=== PATIENT | male | born 1990 | race Hispanic/Latino ===

== ENCOUNTER 2017-03-13 02:11 | Emergency (ER) | payer MEDICAID ==
[2017-03-13 02:30] VITALS: BP 144/62; PULSE 80; RESP 16; TEMP 98.2; O2SAT 100
--- NOTE | 2017-03-13 02:38 | ED PDOC ---
HPI: General Adult Time Seen by Provider: 03/13/17 02:25 Chief Complaint (Nursing): Medical Clearance Chief Complaint (Provider): none History Per: Patient, EMS Additional History Per: Patient, EMS Additional Complaint(s): 26 y/o male brought in by EMS and police for eval. Patient was placed under arrest for being disruptive in homeless residential, and was then released and brought here. Patient calm upon arrival, not speaking but nods "yes" and "no" to questions asked. Denies acute medical or psychiatric complaints. History of bipolar, schizoaffective as per chart. Admits to being compliant with psych meds. Past Medical History Reviewed: Historical Data, Nursing Documentation, Vital Signs Vital Signs: Last Vital Signs Temp 98.2 F 03/13/17 02:28 Pulse 80 03/13/17 02:28 Resp 16 03/13/17 02:28 BP 144/62 03/13/17 02:28 Pulse Ox 100 03/13/17 05:21 - Medical History PMH: Bipolar Disorder Denies: Chronic Kidney Disease - Surgical History Surgical History: No Surg Hx - Family History Family History: States: No Known Family Hx - Living Arrangements Living Arrangements: Alone - Allergies Allergies/Adverse Reactions: Allergies Allergy/AdvReac Type Severity Reaction Status Date / Time Penicillins Allergy RASH Verified 02/26/16 01:28 Review of Systems ROS Statement: Except As Marked, All Systems Reviewed And Found Negative Physical Exam - Reviewed Nursing Documentation Reviewed: Yes Vital Signs Reviewed: Yes - Physical Exam Appears: Positive for: Well, Non-toxic, No Acute Distress Head Exam: Positive for: ATRAUMATIC, NORMAL INSPECTION, NORMOCEPHALIC Skin: Positive for: Normal Color ENT: Positive for: Normal ENT Inspection Cardiovascular/Chest: Positive for: Regular Rate, Rhythm Respiratory: Positive for: Normal Breath Sounds Extremity: Positive for: Normal ROM Neurologic/Psych: Positive for: Alert, Oriented - Laboratory Results Result Diagrams: 03/13/17 04:35 03/13/17 04:35 - ECG O2 Sat by Pulse Oximetry: 100 - Progress ED Course And Treament: labs, urine, crisis eval Patient evaluated by construction worker; does not meet criteria for admission at this time. Follow up outpatient therapy. Return to ED for worsening/concerning symptoms. Disposition - Clinical Impression Clinical Impression: Schizoaffective disorder - Patient ED Disposition Is Patient to be Admitted: No Counseled Patient/Family Regarding: Studies Performed, Diagnosis, Need For Followup - Disposition Disposition: Routine/Home Disposition Time: 05:21 Condition: STABLE Additional Instructions: Follow up with outpatient therapy as scheduled, today. Continue current medications. Return to ED for worsening/concerning symptoms. Instructions: Schizoaffective Disorder (ED)
[2017-03-13 04:42] LABS: BASO # 0.1 K/uL (0.0-0.2); BASO % 0.6 % (0.0-2.0); EOS # 0.1 K/uL (0.0-0.7); EOS % 0.6 % (0.0-4.0); HEMATOCRIT 42.9 % (35.0-51.0); LYMPH # 2.8 K/uL (1.0-4.3); LYMPH % 29.9 % (20.0-40.0); MEAN CELL VOLUME 89.9 fl (80.0-94.0); MEAN CORPUSCULAR HEMOGLOBIN 31.2 pg (27.0-31.0); MEAN CORPUSCULAR HGB CONC 34.7 g/dL (33.0-37.0); MEAN PLATELET VOLUME 8.7 fl (7.2-11.7); MONO # 0.9 K/uL (0.0-0.8); MONO % 9.9 % (0.0-10.0); NEUT # 5.4 K/uL (1.8-7.0); NRBC % 0.1 % (0.0-0.0); RED CELL DISTRIBUTION WIDTH 13.9 % (11.5-14.5); WHITE BLOOD COUNT 9.2 K/uL (4.8-10.8)
[2017-03-13 04:50] LABS: ALB/GLOB RATIO 1.4 (1.0-2.1); ALCOHOL SERUM < 10 mg/dl (0-10); ALKALINE PHOSPHATASE 55 U/L (38-126); ALT/SGPT 32 U/L (21-72); AST/SGOT 26 U/L (17-59); BILIRUBIN,TOTAL 0.7 mg/dl (0.2-1.3); BLOOD UREA NITROGEN 20 mg/dl (9-20); CALCIUM 9.8 mg/dL (8.4-10.2); CARBON DIOXIDE 26 mmol/L (22-30); CHLORIDE 106 mmol/L (98-107); GFR AFRICAN-AMERICAN > 60; GLUCOSE,RANDOM 93 mg/dL (75-110); SODIUM 143 mmol/l (132-148); TOTAL PROTEIN 7.8 G/DL (6.3-8.2)
[2017-03-13 04:58] LABS: POTASSIUM 5.1 MMOL/L (3.6-5.0)
== END 2017-03-13 06:40 | disposition home or self-care (01) ==
LOC: H.ER 02:11
DX: F25.9 Schizoaffective disorder, unspecified (principal); F31.9 Bipolar disorder, unspecified; Z88.0 Allergy status to penicillin; Z59.0 Homelessness

== ENCOUNTER 2017-03-14 14:17 | Inpatient (IN) | payer MEDICAID ==
[2017-03-14 14:57] VITALS: BMI 35.5
[2017-03-14 15:50] LABS: BASO % 0.8 % (0.0-2.0); EOS # 0.1 K/uL (0.0-0.7); EOS % 1.6 % (0.0-4.0); HEMATOCRIT 41.5 % (35.0-51.0); LYMPH # 2.1 K/uL (1.0-4.3); LYMPH % 32.8 % (20.0-40.0); MEAN CELL VOLUME 90.1 fl (80.0-94.0); MEAN CORPUSCULAR HEMOGLOBIN 30.8 pg (27.0-31.0); MEAN CORPUSCULAR HGB CONC 34.2 g/dL (33.0-37.0); MEAN PLATELET VOLUME 8.4 fl (7.2-11.7); MONO # 0.5 K/uL (0.0-0.8); MONO % 7.3 % (0.0-10.0); NEUT # 3.6 K/uL (1.8-7.0); NEUT % 57.5 % (50.0-75.0); NRBC % 0.1 % (0.0-0.0); RED CELL DISTRIBUTION WIDTH 13.9 % (11.5-14.5); WHITE BLOOD COUNT 6.3 K/uL (4.8-10.8)
[2017-03-14 15:56] LABS: ALB/GLOB RATIO 1.4 (1.0-2.1); ALCOHOL SERUM < 10 mg/dl (0-10); ALKALINE PHOSPHATASE 49 U/L (38-126); ALT/SGPT 32 U/L (21-72); AST/SGOT 21 U/L (17-59); BILIRUBIN,TOTAL 0.5 mg/dl (0.2-1.3); BLOOD UREA NITROGEN 19 mg/dl (9-20); CALCIUM 9.4 mg/dL (8.4-10.2); CARBON DIOXIDE 25 mmol/L (22-30); CHLORIDE 107 mmol/L (98-107); GFR AFRICAN-AMERICAN > 60; GLUCOSE,RANDOM 116 mg/dL (75-110); POTASSIUM 3.6 MMOL/L (3.6-5.0); SODIUM 143 mmol/l (132-148)
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
[2017-03-14 19:19] VITALS: O2SAT 100
[2017-03-14] MEDS ORDERED: Magnesium Hydroxide Susp 30 ml UD PO PRN (21:06)
[2017-03-14] MEDS ORDERED: Alum-Mag Hydrox-Simethicone Susp (30 mL) PO PRN (21:06)
[2017-03-14] MEDS ORDERED: DiphenhydrAMINE 50 mg/ml Inj IM PRN (21:06)
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
[2017-03-14] MEDS: Divalproex 500 mg ER (ONCE DAILY formulation) PO SCH (21:42)
[2017-03-15 07:25] LABS: T4 8.45 ug/dl (5.5-11.0)
[2017-03-15 07:39] LABS: THYROID STIMULATING HORMONE 3.57 mIU/ML (0.46-4.68)
[2017-03-15] MEDS ORDERED: Risperidone M tab 0.5MG PO SCH (09:00)
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
--- NOTE | 2017-03-15 12:08 | CP.PCM.CON ---
History of Present Illness - History of Present Illness History of Present Illness: Reason for Consult: per hospital protocol CC: anxiety HPI 26 year old male with PMH schizoaffective disorder, DM, Seizures, admitted to psych for aggressive behavior. Pt is calm, no complaints at this time. HD stable NAD. ROS: per HPI, 12 systems reviewed and negative PMH: schizoaffective disorder, DM, Seizures PSH: denies FH: denies SH: denies tobacco, ETOH, IVDU Meds: as below Allergies: NKDA Vitals: reviewed and currently stable Temp Pulse Resp BP Pulse Ox 97.5 F L 75 18 102/75 100 03/15/17 09:00 03/15/17 09:00 03/15/17 09:00 03/15/17 09:00 03/14/17 19:18 Exam: GEN: WDWN, alert, cooperative HEENT: NCAT, PERRL, EOMI NECK: supple, no JVD, no lymphadenopathy CARDIAC: +S1S2 RRR LUNG: CTAB No WRR ABD: SOFT NT ND BSX4 NO MASSES NO HSM EXT: +pedal pulses, equal strength NEURO: AAOx3 SKIN warm, dry PSYCH normal mood, normal affect Labs: 03/14/17 15:35 03/14/17 15:35 Assessment and Plan: 26 year old male with PMH schizoaffective disorder admitted to psych for aggressive behavior. Pt is calm, no complaints at this time. HD stable NAD. Schizoaffective Disorder Management per psych DM? pt states he is on Metformin "just in case" Seizures continue anticonvulsives Past Patient History - Past Social History Smoking Status: Never Smoked - CARDIAC Hx Cardiac Disorders: No Hx Hypertension: No - PULMONARY Hx Tuberculosis: No - NEUROLOGICAL HX Cerebrovascular Accident: No Hx Seizures: No - HEENT Hx HEENT Problems: No - RENAL Hx Chronic Kidney Disease: No - ENDOCRINE/METABOLIC Hx Endocrine Disorders: No - HEMATOLOGICAL/ONCOLOGICAL Hx Cancer: No Hx Human Immunodeficiency Virus (HIV): No - MUSCULOSKELETAL/RHEUMATOLOGICAL Hx Musculoskeletal Disorders: No - GASTROINTESTINAL Hx Gastrointestinal Disorders: No - GENITOURINARY/GYNECOLOGICAL Hx Sexually Transmitted Disorders: No - PSYCHIATRIC Hx Substance Use: No - SURGICAL HISTORY Hx Surgeries: No - ANESTHESIA Hx Anesthesia: No Meds Allergies/Adverse Reactions: Allergies Allergy/AdvReac Type Severity Reaction Status Date / Time Penicillins Allergy RASH Verified 02/26/16 01:28 haloperidol [From Haldol] AdvReac increased Verified 03/15/17 12:10 heart rate - Medications Medications: Current Medications Acetaminophen (Tylenol 325mg Tab) 650 mg PO Q4 PRN PRN Reason: Pain, moderate (4-7) Al Hydrox/Mg Hydrox/Simethicone (Maalox Plus 30 Ml) 30 ml PO Q4 PRN PRN Reason: Dyspepsia Diphenhydramine HCl (Benadryl) 50 mg IM Q6 PRN PRN Reason: Extrapyramidal S/S Unable PO Diphenhydramine HCl (Benadryl) 50 mg PO HS PRN PRN Reason: Sleep Divalproex Sodium (Depakote Er(Once Daily)) 500 mg PO HS [facility] Last Admin: 03/14/17 21:42 Dose: 500 mg Divalproex Sodium (Depakote Dr(*Bid*)) 500 mg PO DAILY [facility] Haloperidol (Haldol) 5 mg PO Q4 PRN PRN Reason: Agitation Haloperidol Lactate (Haldol) 5 mg IM Q4 PRN PRN Reason: Agitation, Unable to Take PO Lorazepam (Ativan) 2 mg IM Q4 PRN PRN Reason: Anxiety/Agitation,Unable PO Lorazepam (Ativan) 1 mg PO Q4 PRN PRN Reason: Anxiety/Agitation Magnesium Hydroxide (Milk Of Magnesia) 30 ml PO HS PRN PRN Reason: Constipation Metformin HCl (Glucophage) 500 mg PO HS [facility] Last Admin: 03/14/17 21:43 Dose: 500 mg Risperidone (Risperdal Tab) 2 mg PO DAILY [facility] Results - Vital Signs Recent Vital Signs: Last Vital Signs Temp 97.5 F L 03/15/17 09:00 Pulse 75 03/15/17 09:00 Resp 18 03/15/17 09:00 BP 102/75 03/15/17 09:00 Pulse Ox 100 03/14/17 19:18 - Labs Result Diagrams: 03/14/17 15:35 03/14/17 15:35 Labs: Laboratory Results - last 24 hr 03/14/17 03/15/17 03/15/17 18:25 06:30 06:30 Hemoglobin A1c 5.0 Triglycerides 118 Cholesterol 140 LDL Cholesterol Direct 86 HDL Cholesterol 33 Thyroxine (T4) 8.45 TSH 3rd Generation 3.57 Urine Opiates Screen Negative Urine Methadone Screen Negative Ur Barbiturates Screen Negative Ur Phencyclidine Scrn Negative Ur Amphetamines Screen Negative U Benzodiazepines Scrn Negative U Oth Cocaine Metabols Negative U Cannabinoids Screen Negative
[2017-03-15] MEDS: Divalproex 500 mg DR(BID formulation) PO SCH (13:00)
[2017-03-15] MEDS: Divalproex 500 mg ER (ONCE DAILY formulation) PO SCH (21:49)
[2017-03-16] MEDS: Divalproex 500 mg DR(BID formulation) PO SCH (10:09)
--- NOTE | 2017-03-16 11:48 | CARD ---
APPROVED REPORT EKG Measurement Heart [id number] <Conclusion> Normal sinus rhythm with sinus arrhythmia Normal ECG
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
[2017-03-16 12:25] LABS: RBC URINE < 1 /hpf (0-3); URINE BILIRUBIN NEGATIVE (NEGATIVE); URINE BLOOD SMALL (NEGATIVE); URINE COLOR STRAW (YELLOW); URINE GLUCOSE (UA) NEG (Normal); URINE KETONE NEGATIVE (NEGATIVE); URINE LEUKOCYTE ESTERASE NEG Leu/uL (Negative); URINE PROTEIN NEGATIVE (NEGATIVE); URINE UROBILINOGEN 0.2-1.0 mg/dL (0.2-1.0); WBC URINE < 1 /hpf (0-5)
[2017-03-16] MEDS: Divalproex 500 mg ER (ONCE DAILY formulation) PO SCH (22:07)
--- NOTE | 2017-03-17 09:18 | RAD ---
HISTORY: pt for involuntary commitment COMPARISON: No prior. FINDINGS: LUNGS: No active pulmonary disease. PLEURA: No significant pleural effusion identified, no pneumothorax apparent. CARDIOVASCULAR: Normal. OSSEOUS STRUCTURES: No significant abnormalities. VISUALIZED UPPER ABDOMEN: Normal. OTHER FINDINGS: None. IMPRESSION: No active disease.
[2017-03-17] MEDS: Divalproex 500 mg DR(BID formulation) PO SCH (10:14)
--- NOTE | 2017-03-17 11:29 | PCM.PYCHPN ---
Psychiatric Progress Note - Psychiatric Progress Note Patient seen today, length of contact: discussed with team Patient Chief Complaint: no complaints Problems Identified/Issues Discussed: pt has been accepted at [facility] [place]. he is less irritable today. he is calm and without any aggression. Medication Change: No ( ) Medical Record Reviewed: Yes Mental Status Examination - Cognitive Function Orientation: Person, Place, Situation, Time Memory: Intact Attention: WNL Concentration: Poor Association: Loose Fund of Knowledge: WNL Decription of patient's judgement and insights: poor i/j. poor impulse control - Mood Mood: Neutral - Affect Affect: Constricted - Speech Speech: Appropriate - Formal Thought Process Formal Thought Process: Delusions, Paranoia, Loosening of associations, Perservation Psychotic Thoughts and Behaviors: pt minimizing his presenting symptoms, pt appears to be internally preoccupied, paranoid. he is guarded and sarcastic - Suicidal Ideation Suicidal Ideation: No - Homicidal Ideation Homicidal Ideation: No Goal/Treatment Plan - Goal/Treatment Plan Need for Continued Stay: Remain at risks for inpatient hospitalization, Severe functional impairment Progress Toward Problem(s) and Goals/Treatment Plan: schizoaffective disorder will continue current medications pt transfering to [facility] [place] when bed available Estimated Date of D/C: 03/20/17
[2017-03-17 17:59] VITALS: BP 125/79; PULSE 92; RESP 18; TEMP 97.2
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
[2017-03-19 21:56] LABS: ACETONE None Detected; ETHANOL None Detected; METHANOL None Detected
== END 2017-03-17 20:10 | DRG 430 ==
LOC: H.ER 14:17 → H.EROBSV 14:50 → H.ERHOLD 18:14 → OBSVTOIN 18:14 → H.PSYCH 20:57
PROVIDERS: ADMIT Psychiatry & Neurology Psychiatry; ATTEND Psychiatry & Neurology Psychiatry
PROC: GZHZZZZ Group Psychotherapy (ICD-10-PCS; principal; 2017-03-14)
PROC: GZ58ZZZ Individual Psychotherapy, Cognitive-Behavioral (ICD-10-PCS; 2017-03-14)
DX: F25.9 Schizoaffective disorder, unspecified (principal); R56.9 Unspecified convulsions; E11.9 Type 2 diabetes mellitus without complications; Z91.19 Patient's noncompliance with other medical treatment and regimen; Z78.1 Physical restraint status; Z88.0 Allergy status to penicillin